=== PATIENT | female | born 1960 | race Caucasian/White ===

== ENCOUNTER → 2016-07-22 | Outpatient (REF) | payer OTHER | LOC: M LAB REF 11:22 | PROVIDERS: ATTEND Physician Assistant Medical | DX: N39.0 Urinary tract infection, site not specified (principal) ==

== ENCOUNTER → 2016-08-24 | Outpatient (CLI) | payer OTHER ==
--- NOTE | 2016-08-24 10:41 | REPMRS ---
Patient History The patient states she had a clinical breast exam in 08/2016. Patient is postmenopausal and is nulliparous. Family history of colorectal cancer in sister at age 72. Digital Woman Screen Mammo: August 24, 2016 - Exam #: [id number] Bilateral CC and MLO view(s) were taken. Technologist: Maria Teresa De Leon Technologist Prior study comparison: August 19, 2015, digital woman screen mammo performed at [facility]. July 20, 2014, digital woman screen mammo performed at [facility]. April 30, 2013, digital woman screen mammo performed at [facility]. FINDINGS: There are scattered fibroglandular densities. There has been no change in the appearance of the mammogram from the prior studies. An area of asymmetric breast parenchymal density is again seen in the right breast unchanged from multiple prior studies. There is no interval development of dominant mass, architectural distortion, or clustered microcalcification suggestive of malignancy. ASSESSMENT: BI-RADS/ACR category 2 mammogram. Benign finding(s). Recommendation Routine screening mammogram in 1 year (for women over age 40). This mammogram was interpreted with the aid of an FDA-approved computer-aided dectection system. Electronically Signed By: Jose Jaimes MD 08/24/16 1978
== END ==
LOC: M WHC 08:44
PROVIDERS: ATTEND Nurse Practitioner Women's Health
DX: Z12.31 Encounter for screening mammogram for malignant neoplasm of breast (principal)

== ENCOUNTER → 2016-08-24 | Outpatient (REF) | payer OTHER | LOC: M SFHCWAGY 09:08 | PROVIDERS: ATTEND Nurse Practitioner Women's Health | DX: Z12.4 Encounter for screening for malignant neoplasm of cervix (principal); R87.610 Atypical squamous cells of undetermined significance on cytologic smear of cervix (ASC-US); R87.810 Cervical high risk human papillomavirus (HPV) DNA test positive ==

== ENCOUNTER → 2016-09-09 | Outpatient (CLI) | payer OTHER ==
--- NOTE | 2016-09-09 12:47 | REP ---
Thoracic spine series: Three views. History: Radiculopathy. Pain for 2 weeks. No known injury. Findings: Thoracic vertebral body heights are preserved and alignment is normal. There is discogenic spurring in the mid and lower thoracic levels consistent with degenerative disc disease. Pedicles and posterior elements are intact. No paravertebral soft-tissue mass or hematoma is seen. Swimmer's lateral view shows no additional abnormality apart from some degenerative disc disease in the lower cervical spine. Impression: Degenerative disc changes. No acute bony abnormality. Signed by Garcia Jaimes MD 09/09/2016 01:14 P
== END ==
LOC: M WUC 11:38
PROVIDERS: ATTEND Physician Assistant
DX: M54.14 Radiculopathy, thoracic region (principal)

== ENCOUNTER → 2016-10-05 | Outpatient (REF) | payer OTHER | LOC: M SFHCWAGY 09:54 | PROVIDERS: ATTEND Family Medicine | DX: R87.610 Atypical squamous cells of undetermined significance on cytologic smear of cervix (ASC-US) (principal); R87.612 Low grade squamous intraepithelial lesion on cytologic smear of cervix (LGSIL); R87.810 Cervical high risk human papillomavirus (HPV) DNA test positive ==

== ENCOUNTER → 2016-10-24 | Outpatient (REF) | payer OTHER ==
[2016-10-24 10:55] LABS: MEAN CORPUSCULAR HEMOGLOBIN 29.7 pg (27.0-33.0); MEAN CORPUSCULAR HGB CONC 33.9 g/dl (32.0-36.5); MEAN CORPUSCULAR VOLUME 87.6 fl (80.0-96.0); RED CELL DISTRIBUTION WIDTH 12.2 % (11.5-14.5); WHITE BLOOD COUNT 3.4 K/mm3 (4.0-10.0)
[2016-10-24 11:22] LABS: ALBUMIN 3.4 GM/DL (3.2-5.2); ALBUMIN/GLOBULIN RATIO 1.17 (1.00-1.93); ALKALINE PHOSPHATASE 82 U/L (45-117); ALT/SGPT 27 U/L (12-78); ANION GAP 6 MEQ/L (8-16); AST/SGOT 18 U/L (15-37); BILIRUBIN,TOTAL 0.3 MG/DL (0.2-1.0); BLOOD UREA NITROGEN 23 MG/DL (7-18); CALCIUM LEVEL 8.5 MG/DL (8.5-10.1); CARBON DIOXIDE LEVEL 29 MEQ/L (21-32); CHLORIDE LEVEL 109 MEQ/L (98-107); CHOLESTEROL LEVEL 210 MG/DL (<200); CREATININE FOR GFR 0.89 MG/DL (0.55-1.02); GLOMERULAR FILTRATION RATE > 60.0 (>51); GLUCOSE, FASTING 94 MG/DL (70-105); POTASSIUM SERUM 4.5 MEQ/L (3.5-5.1); SODIUM LEVEL 144 MEQ/L (136-145); TOTAL PROTEIN 6.3 GM/DL (6.4-8.2); TRIGLYCERIDES LEVEL 63 MG/DL (<150)
== END ==
LOC: M LABDRAW1 10:32
PROVIDERS: ATTEND Nurse Practitioner Family
DX: Z00.00 Encounter for general adult medical examination without abnormal findings (principal); Z13.220 Encounter for screening for lipoid disorders; E55.9 Vitamin D deficiency, unspecified

== ENCOUNTER → 2017-06-25 | Outpatient (REF) | payer OTHER ==
[2017-06-25 11:25] LABS: APPEARANCE, URINE HAZY (CLEAR); BACTERIA, URINE AUTO 1+ (NEGATIVE); BILIRUBIN, URINE AUTO NEGATIVE (NEGATIVE); BLOOD, URINE BLOOD 3+ (NEGATIVE); COLOR, URINE STRAW (YELLOW); GLUCOSE, URINE (UA) AUTO NEGATIVE (NEGATIVE); KETONE, URINE AUTO NEGATIVE (NEGATIVE); LEUKOCYTE ESTERASE, URINE AUTO 3+ (NEGATIVE); NITRITE, URINE AUTO NEGATIVE (NEGATIVE); PROTEIN, URINE AUTO NEGATIVE (NEGATIVE); RBC, URINE AUTO 3 /HPF (0-3); SPECIFIC GRAVITY URINE AUTO 1.001 (1.002-1.035); SQUAMOUS EPITHELIAL CELL UR AU 0 /HPF (0-6); UROBILINOGEN, URINE AUTO 0.2 mg/dL (0.0-2.0); WBC, URINE AUTO 18 /HPF (0-3)
== END ==
LOC: M LAB REF 11:02
DX: R30.0 Dysuria (principal)

== ENCOUNTER → 2017-10-24 | Outpatient (REF) | payer OTHER ==
[2017-10-24 12:05] LABS: HEMATOCRIT 40.9 % (36.0-47.0); HEMOGLOBIN 13.2 g/dl (12.0-15.5); MEAN CORPUSCULAR HEMOGLOBIN 28.3 pg (27.0-33.0); MEAN CORPUSCULAR HGB CONC 32.3 g/dl (32.0-36.5); MEAN CORPUSCULAR VOLUME 87.6 fl (80.0-96.0); PLATELET COUNT, AUTOMATED 308 10^3/uL (150-450); RED BLOOD COUNT 4.67 10^6/uL (4.00-5.40); RED CELL DISTRIBUTION WIDTH 12.4 % (11.5-14.5); WHITE BLOOD COUNT 4.1 10^3/uL (4.0-10.0)
[2017-10-24 12:22] LABS: TOTAL 25(OH) VITAMIN D 60.4 NG/ML (30.0-100.0)
[2017-10-24 12:45] LABS: ANION GAP 5 MEQ/L (8-16); BLOOD UREA NITROGEN 11 MG/DL (7-18); CALCIUM LEVEL 8.9 MG/DL (8.5-10.1); CARBON DIOXIDE LEVEL 29 MEQ/L (21-32); CHLORIDE LEVEL 108 MEQ/L (98-107); CREATININE FOR GFR 0.87 MG/DL (0.55-1.30); GLOMERULAR FILTRATION RATE > 60.0 (>51); GLUCOSE, FASTING 92 MG/DL (70-100); POTASSIUM SERUM 4.4 MEQ/L (3.5-5.1); SODIUM LEVEL 142 MEQ/L (136-145)
[2017-10-25 10:37] LABS: HEPATITIS C VIRUS ABY INDEX < 0.0 INDEX (<0.8)
== END ==
LOC: M SFHCPLAZ 09:02
DX: J30.9 Allergic rhinitis, unspecified (principal); Z11.59 Encounter for screening for other viral diseases; Z83.3 Family history of diabetes mellitus; E55.9 Vitamin D deficiency, unspecified

== ENCOUNTER → 2017-11-02 | Outpatient (CLI) | payer OTHER ==
[2017-11-02 13:33] LABS: ALBUMIN 3.8 GM/DL (3.2-5.2); ALBUMIN/GLOBULIN RATIO 1.15 (1.00-1.93); ALKALINE PHOSPHATASE 113 U/L (45-117); ALT/SGPT 38 U/L (12-78); ANION GAP 6 MEQ/L (8-16); AST/SGOT 26 U/L (7-37); BILIRUBIN,TOTAL 0.6 MG/DL (0.2-1.0); BLOOD UREA NITROGEN 12 MG/DL (7-18); CALCIUM LEVEL 8.8 MG/DL (8.5-10.1); CARBON DIOXIDE LEVEL 29 MEQ/L (21-32); CHLORIDE LEVEL 109 MEQ/L (98-107); CHOLESTEROL LEVEL 249 MG/DL (<200); FREE T4 0.81 NG/DL (0.76-1.46); GLOMERULAR FILTRATION RATE > 60.0 (>51); GLUCOSE, FASTING 96 MG/DL (70-100); HDL CHOLESTEROL 83 MG/DL (>40); LDL CHOLESTEROL 144.2 MG/DL (<100); NON-HDL-C 166 MG/DL; POTASSIUM SERUM 4.6 MEQ/L (3.5-5.1); SODIUM LEVEL 144 MEQ/L (136-145); TOTAL PROTEIN 7.1 GM/DL (6.4-8.2); TRIGLYCERIDES LEVEL 109 MG/DL (<150)
[2017-11-02 13:41] LABS: ESTIMATED AVERAGE GLUCOSE 114 MG/DL (60-110); HEMOGLOBIN A1c 5.6 %
== END ==
LOC: M WUC 09:11
DX: R03.0 Elevated blood-pressure reading, without diagnosis of hypertension (principal); R00.2 Palpitations; Z83.3 Family history of diabetes mellitus
CPT/HCPCS: 84443

== ENCOUNTER → 2017-11-22 | Outpatient (REF) | payer OTHER ==
[2017-11-23 14:10] LABS: HPV HYBRID CAPTURE II Negative (Negative)
== END ==
LOC: M SFHCWAGY 09:28
DX: Z01.419 Encounter for gynecological examination (general) (routine) without abnormal findings (principal); Z11.51 Encounter for screening for human papillomavirus (HPV)

== ENCOUNTER → 2017-11-22 | Outpatient (CLI) | payer OTHER | LOC: M WHC 09:22 | DX: Z12.31 Encounter for screening mammogram for malignant neoplasm of breast (principal) ==

== ENCOUNTER → 2018-03-06 | Outpatient (CLI) | payer OTHER ==
[2018-03-06 11:14] LABS: ANION GAP 7 MEQ/L (8-16); BLOOD UREA NITROGEN 13 MG/DL (7-18); CALCIUM LEVEL 8.9 MG/DL (8.5-10.1); CARBON DIOXIDE LEVEL 27 MEQ/L (21-32); CHLORIDE LEVEL 106 MEQ/L (98-107); CREATININE FOR GFR 0.76 MG/DL (0.55-1.30); GLOMERULAR FILTRATION RATE > 60.0 (>51); GLUCOSE, FASTING 86 MG/DL (70-100); POTASSIUM SERUM 4.7 MEQ/L (3.5-5.1); SODIUM LEVEL 140 MEQ/L (136-145)
== END ==
LOC: M WUC 08:35
DX: I10 Essential (primary) hypertension (principal)
CPT/HCPCS: 80048

== ENCOUNTER → 2018-08-28 | Outpatient (CLI) | payer OTHER ==
[2018-08-28 13:50] LABS: ALBUMIN 3.9 GM/DL (3.2-5.2); ALT/SGPT 30 U/L (12-78); BILIRUBIN,TOTAL 0.5 MG/DL (0.2-1.0); BLOOD UREA NITROGEN 11 MG/DL (7-18); CARBON DIOXIDE LEVEL 27 MEQ/L (21-32); CHLORIDE LEVEL 105 MEQ/L (98-107); CHOLESTEROL LEVEL 205 MG/DL (<200); CHOLESTEROL RISK RATIO 2.733 (<5); GLOMERULAR FILTRATION RATE > 60.0 (>51); GLUCOSE, FASTING 91 MG/DL (70-100); HDL CHOLESTEROL 75 MG/DL (>40); LDL CHOLESTEROL 112 MG/DL (<100); NON-HDL-C 130 MG/DL; SODIUM LEVEL 139 MEQ/L (136-145); TOTAL PROTEIN 6.8 GM/DL (6.4-8.2); TRIGLYCERIDES LEVEL 89 MG/DL (<150)
[2018-08-28 13:56] LABS: TOTAL 25(OH) VITAMIN D 50.5 NG/ML (30.0-100.0)
== END ==
LOC: M WUC 08:50
PROVIDERS: ATTEND Nurse Practitioner Family
DX: I10 Essential (primary) hypertension (principal); E78.2 Mixed hyperlipidemia; E55.9 Vitamin D deficiency, unspecified

== ENCOUNTER → 2018-09-15 | Outpatient (REF) | payer OTHER ==
[~2018-09-15] MED LIST: CIPR-249 PO; LOSA25TA14 PO; PYRI1TAB5 PO
[2018-09-15 17:16] LABS: INFLUENZA A AMPLIFICATION NEGATIVE (NEGATIVE); INFLUENZA B AMPLIFICATION NEGATIVE (NEGATIVE)
== END ==
LOC: M LAB REF 16:27
PROVIDERS: ATTEND Physician Assistant Medical
DX: J11.1 Influenza due to unidentified influenza virus with other respiratory manifestations (principal)

== ENCOUNTER 2018-09-17 03:47 | Emergency (ER) | payer OTHER ==
[~2018-09-17] VITALS: Ht 162.6 cm; Wt 72.7 kg
[2018-09-17] MEDS ORDERED: LOSA25TA14 PO (03:53)
[2018-09-17 04:17] LABS: APPEARANCE, URINE CLOUDY (CLEAR); BACTERIA, URINE AUTO 1+ (NEGATIVE); BILIRUBIN, URINE AUTO NEGATIVE (NEGATIVE); BLOOD, URINE BLOOD 3+ (NEGATIVE); COLOR, URINE AMBER (YELLOW); GLUCOSE, URINE (UA) AUTO NEGATIVE (NEGATIVE); KETONE, URINE AUTO TRACE mg/dL (NEGATIVE); LEUKOCYTE ESTERASE, URINE AUTO 3+ (NEGATIVE); MUCUS, URINE SMALL (NEGATIVE); NITRITE, URINE AUTO NEGATIVE (NEGATIVE); PROTEIN, URINE AUTO 2+ mg/dL (NEGATIVE); RBC, URINE AUTO 40 /HPF (0-3); SPECIFIC GRAVITY URINE AUTO 1.019 (1.002-1.035); SQUAMOUS EPITHELIAL CELL UR AU 16 /HPF (0-6); UROBILINOGEN, URINE AUTO 0.2 mg/dL (0.0-2.0); WBC, URINE AUTO TNTC /HPF (0-3)
[2018-09-17] MEDS ORDERED: CIPROFLOXACIN 500 MG TAB PO ONE (06:00)
[2018-09-17] MEDS ORDERED: PHENAZOPYRIDINE 100 MG TAB PO ONE (06:00)
[2018-09-17] MEDS ORDERED: PYRI1TAB5 PO (06:03)
[2018-09-17] MEDS ORDERED: CIPR-249 PO (06:03)
[2018-09-17 06:10] VITALS: BP 139/69
== END 2018-09-17 06:31 | disposition home or self-care (01) ==
LOC: M ED 03:47
DX: N30.00 Acute cystitis without hematuria (principal)

== ENCOUNTER → 2018-09-25 | Outpatient (REF) | payer OTHER | LOC: M SFHCPLAZ 11:59 | PROVIDERS: ATTEND Nurse Practitioner Family | DX: R30.0 Dysuria (principal) ==

== ENCOUNTER → 2018-09-25 | Outpatient (REF) | payer OTHER | LOC: M SFHCPLAZ 15:55 | PROVIDERS: ATTEND Nurse Practitioner Family | DX: R30.0 Dysuria (principal) ==

== ENCOUNTER → 2018-09-25 | Outpatient (CLI) | payer OTHER ==
[2018-09-25 17:17] LABS: BASO # 0.1 10^3/uL (0.0-0.2); BASO % 0.7 % (0.0-1.0); BLOOD UREA NITROGEN 7 MG/DL (7-18); CALCIUM LEVEL 8.9 MG/DL (8.5-10.1); CARBON DIOXIDE LEVEL 30 MEQ/L (21-32); CHLORIDE LEVEL 105 MEQ/L (98-107); EOS # 0.2 10^3/uL (0.0-0.50); EOS % 2.9 % (0.0-3.0); GLOMERULAR FILTRATION RATE > 60.0 (>51); GLUCOSE, FASTING 85 MG/DL (70-100); HEMATOCRIT 38.9 % (36.0-47.0); HEMOGLOBIN 12.4 g/dl (12.0-15.5); LYMPH # 1.7 10^3/uL (1.5-4.5); MEAN CORPUSCULAR HEMOGLOBIN 28.7 pg (27.0-33.0); MEAN CORPUSCULAR HGB CONC 31.9 g/dl (32.0-36.5); MONO # 0.8 10^3/uL (0.0-0.8); MONO % 10.9 % (0.0-5.0); NEUTROPHILS # 4.5 10^3/uL (1.8-7.7); NEUTROPHILS % 61.7 % (36.0-66.0); PLATELET COUNT, AUTOMATED 436 10^3/uL (150-450); RED BLOOD COUNT 4.32 10^6/uL (4.00-5.40); SODIUM LEVEL 139 MEQ/L (136-145); WHITE BLOOD COUNT 7.4 10^3/uL (4.0-10.0)
== END ==
LOC: M WUC 12:26
PROVIDERS: ATTEND Nurse Practitioner Family
DX: R30.0 Dysuria (principal)

== ENCOUNTER → 2018-11-28 | Outpatient (CLI) | payer OTHER ==
--- NOTE | 2018-11-28 12:00 | REPMRS ---
Patient History The patient states she had a clinical breast exam in 11/2018. Patient is postmenopausal and is nulliparous. Family history of pancreatic cancer at age 72 in sister. No Hormone Replacement Therapy 3D TOMOSYNTHESIS WAS PERFORMED. Digital Woman Screen Mammo: November 28, 2018 - Exam #: [id number] Bilateral CC and MLO view(s) were taken. Technologist: Marcia Mackay, Technologist Prior study comparison: November 22, 2017, digital woman screen mammo performed at [facility]. August 24, 2016, digital woman screen mammo performed at [facility]. FINDINGS: There are scattered fibroglandular densities. There has been no change in the appearance of the mammogram from the prior studies. There is a mild amount of residual fibroglandular tissue which is fairly symmetric. There is no interval development of dominant mass, architectural distortion, or clustered microcalcification suggestive of malignancy. Assessment: BI-RADS/ACR category 1 mammogram. Negative Mammogram. Recommendation Routine screening mammogram in 1 year (for women over age 40). This mammogram was interpreted with the aid of an FDA-approved computer-aided dectection system. Electronically Signed By: Brain Reilly MD 11/28/18 1200
== END ==
LOC: M WHC 09:29
PROVIDERS: ATTEND Nurse Practitioner Women's Health
DX: Z12.31 Encounter for screening mammogram for malignant neoplasm of breast (principal); Z78.0 Asymptomatic menopausal state; Z80.0 Family history of malignant neoplasm of digestive organs

== ENCOUNTER → 2019-01-27 | Outpatient (REF) | payer OTHER ==
[2019-01-27 14:45] LABS: APPEARANCE, URINE CLEAR (CLEAR); BACTERIA, URINE AUTO NEGATIVE (NEGATIVE); BILIRUBIN, URINE AUTO NEGATIVE (NEGATIVE); BLOOD, URINE BLOOD 2+ (NEGATIVE); COLOR, URINE YELLOW (YELLOW); GLUCOSE, URINE (UA) AUTO NEGATIVE (NEGATIVE); KETONE, URINE AUTO NEGATIVE (NEGATIVE); LEUKOCYTE ESTERASE, URINE AUTO NEGATIVE (NEGATIVE); MUCUS, URINE SMALL (NEGATIVE); NITRITE, URINE AUTO NEGATIVE (NEGATIVE); PROTEIN, URINE AUTO NEGATIVE (NEGATIVE); RBC, URINE AUTO 9 /HPF (0-3); SPECIFIC GRAVITY URINE AUTO 1.012 (1.002-1.035); SQUAMOUS EPITHELIAL CELL UR AU 0 /HPF (0-6); UROBILINOGEN, URINE AUTO 0.2 mg/dL (0.0-2.0); WBC, URINE AUTO 0 /HPF (0-3)
== END ==
LOC: M LAB REF 12:36
PROVIDERS: ATTEND Physician Assistant Medical
DX: N39.0 Urinary tract infection, site not specified (principal)

== ENCOUNTER → 2019-08-26 | Outpatient (CLI) | payer OTHER ==
[2019-08-26 11:32] LABS: ALT/SGPT 25 U/L (12-78); BILIRUBIN,TOTAL 0.7 MG/DL (0.2-1.0); BLOOD UREA NITROGEN 14 MG/DL (7-18); CALCIUM LEVEL 8.6 MG/DL (8.8-10.2); CARBON DIOXIDE LEVEL 30 MEQ/L (21-32); CHLORIDE LEVEL 105 MEQ/L (98-107); CHOLESTEROL LEVEL 237 MG/DL (<200); CHOLESTEROL RISK RATIO 3.385 (<5); CREATININE FOR GFR 0.74 MG/DL (0.55-1.30); GLOMERULAR FILTRATION RATE > 60.0 (>45); GLUCOSE, FASTING 87 MG/DL (70-100); HDL CHOLESTEROL 70 MG/DL (>40); LDL CHOLESTEROL 143 MG/DL (<100); NON-HDL-C 167 MG/DL; POTASSIUM SERUM 4.7 MEQ/L (3.5-5.1); SODIUM LEVEL 140 MEQ/L (136-145); TOTAL PROTEIN 6.8 GM/DL (6.4-8.2); TRIGLYCERIDES LEVEL 121 MG/DL (<150)
[2019-08-26 11:37] LABS: TOTAL 25(OH) VITAMIN D 60.1 NG/ML (30.0-100.0)
[2019-08-26 11:41] LABS: CREATININE, URINE 56.9 MG/DL; MALB URINE SIEMENS < 5.0 MG/L; MAU/CREAT RATIO 8.7 MCG/MG (0.0-30.0)
== END ==
LOC: M WUC 08:14
PROVIDERS: ATTEND Nurse Practitioner Family
DX: I10 Essential (primary) hypertension (principal); E78.2 Mixed hyperlipidemia; E55.9 Vitamin D deficiency, unspecified

== ENCOUNTER → 2019-12-29 | Outpatient (CLI) | payer OTHER ==
--- NOTE | 2019-12-29 11:41 | REPMRS ---
Patient History The patient states she had a clinical breast exam in December 2019.Family history of pancreatic cancer at age 72 in sister. No Hormone Replacement Therapy 3D TOMOSYNTHESIS WAS PERFORMED. [facility]%. VOLPARA DENSITY B. Digital Woman Screen Mammo: December 29, 2019 - Exam #: [id number] Bilateral CC and MLO view(s) were taken. Technologist: Taina Contreras, Technologist Prior study comparison: November 28, 2018, bilateral digital woman screen mammo performed at [facility]. November 22, 2017, digital woman screen mammo performed at [facility]. FINDINGS: There are scattered fibroglandular densities. There has been no change in the appearance of the mammogram from the prior studies. There is a mild amount of residual fibroglandular tissue which is fairly symmetric. There is no interval development of dominant mass, architectural distortion, or clustered microcalcification suggestive of malignancy. Assessment: BI-RADS/ACR category 1 mammogram. Negative Mammogram. Recommendation Routine screening mammogram in 1 year (for women over age 40). This mammogram was interpreted with the aid of an FDA-approved computer-aided dectection system. Electronically Signed By: Brain Reilly MD 12/29/19 2037
== END ==
LOC: M WHC 08:54
PROVIDERS: ATTEND Nurse Practitioner Women's Health
DX: Z12.31 Encounter for screening mammogram for malignant neoplasm of breast (principal)

== ENCOUNTER → 2019-12-29 | Outpatient (REF) | payer OTHER | LOC: M SFHCWAGY 15:07 | PROVIDERS: ATTEND Nurse Practitioner Women's Health | DX: Z12.4 Encounter for screening for malignant neoplasm of cervix (principal) ==

== ENCOUNTER → 2020-04-28 | Outpatient (REF) | payer OTHER ==
[2020-04-28 14:30] LABS: BLOOD UREA NITROGEN 14 MG/DL (7-18); CARBON DIOXIDE LEVEL 30 MEQ/L (21-32); CHLORIDE LEVEL 106 MEQ/L (98-107); CREATININE FOR GFR 0.79 MG/DL (0.55-1.30); GLOMERULAR FILTRATION RATE > 60.0 (>45); GLUCOSE, FASTING 95 MG/DL (70-100); POTASSIUM SERUM 5.2 MEQ/L (3.5-5.1); SODIUM LEVEL 140 MEQ/L (136-145)
== END ==
LOC: M SFHCPLAZ 10:39
PROVIDERS: ATTEND Nurse Practitioner Family
DX: I10 Essential (primary) hypertension (principal); R19.7 Diarrhea, unspecified

== ENCOUNTER → 2020-05-31 | Outpatient (CLI) | payer SELFPAY | LOC: M LABSMTC 09:24 | PROVIDERS: ATTEND Pediatrics | DX: Z11.59 Encounter for screening for other viral diseases (principal) ==

== ENCOUNTER → 2020-06-03 | Outpatient (REF) | payer SELFPAY | LOC: M SFHCPLAZ 12:39 | PROVIDERS: ATTEND Nurse Practitioner Family | DX: R19.7 Diarrhea, unspecified (principal) ==

== ENCOUNTER → 2020-08-24 | Outpatient (REF) | payer OTHER ==
[2020-08-24 11:13] LABS: ALBUMIN 3.8 GM/DL (3.2-5.2); ALT/SGPT 97 U/L (12-78); BILIRUBIN,TOTAL 0.4 MG/DL (0.2-1.0); BLOOD UREA NITROGEN 12 MG/DL (7-18); CALCIUM LEVEL 8.9 MG/DL (8.8-10.2); CARBON DIOXIDE LEVEL 30 MEQ/L (21-32); CHLORIDE LEVEL 105 MEQ/L (98-107); CHOLESTEROL LEVEL 253 MG/DL (<200); CHOLESTEROL RISK RATIO 3.513 (<5); CREATININE FOR GFR 0.84 MG/DL (0.55-1.30); GLOMERULAR FILTRATION RATE > 60.0 (>45); GLUCOSE, FASTING 95 MG/DL (70-100); HDL CHOLESTEROL 72 MG/DL (>40); LDL CHOLESTEROL 159 MG/DL (<100); NON-HDL-C 181 MG/DL; POTASSIUM SERUM 4.9 MEQ/L (3.5-5.1); SODIUM LEVEL 138 MEQ/L (136-145); TOTAL 25(OH) VITAMIN D 55.2 NG/ML (30.0-100.0); TOTAL PROTEIN 6.8 GM/DL (6.4-8.2); TRIGLYCERIDES LEVEL 112 MG/DL (<150)
[2020-08-24 11:15] LABS: CREATININE, URINE 40.1 MG/DL; MALB URINE SIEMENS 5.8 MG/L; MAU/CREAT RATIO 14.4 MCG/MG (0.0-30.0)
== END ==
LOC: M PLALAB 08:24
PROVIDERS: ATTEND Nurse Practitioner Family
DX: E78.2 Mixed hyperlipidemia (principal); I10 Essential (primary) hypertension; E55.9 Vitamin D deficiency, unspecified

== ENCOUNTER → 2020-10-07 | Outpatient (REF) | payer OTHER ==
[2020-10-07 12:41] LABS: ALBUMIN 3.7 GM/DL (3.2-5.2); BILIRUBIN,DIRECT 0.2 MG/DL (0.0-0.2); BILIRUBIN,TOTAL 0.5 MG/DL (0.2-1.0); TOTAL PROTEIN 6.6 GM/DL (6.4-8.2)
== END ==
LOC: M PLALAB 09:39
PROVIDERS: ATTEND Nurse Practitioner Family
DX: R79.89 Other specified abnormal findings of blood chemistry (principal)

== ENCOUNTER → 2020-11-02 | Outpatient (REF) | payer OTHER ==
[2020-11-02 10:49] LABS: ALBUMIN 3.9 GM/DL (3.2-5.2); ALT/SGPT 64 U/L (12-78); BILIRUBIN,DIRECT 0.1 MG/DL (0.0-0.2); BILIRUBIN,TOTAL 0.6 MG/DL (0.2-1.0); TOTAL PROTEIN 6.9 GM/DL (6.4-8.2)
[2020-11-02 13:27] LABS: HEPATITIS B SURFACE ANTIGEN NEGATIVE (NEGATIVE)
[2020-11-02 13:55] LABS: HEPATITIS B CORE ANTIBODY IGM NEGATIVE (NEGATIVE); HEPATITIS C VIRUS ABY INDEX < 0.0 INDEX (<0.8)
[2020-11-02 13:57] LABS: HEPATITIS A ANTIBODY IGM NEGATIVE (NEGATIVE)
== END ==
LOC: M PLALAB 08:08
PROVIDERS: ATTEND Nurse Practitioner Family
DX: R79.89 Other specified abnormal findings of blood chemistry (principal)

== ENCOUNTER → 2020-11-02 | Outpatient (CLI) | payer OTHER ==
--- NOTE | 2020-11-02 10:15 | REP ---
INDICATION: R79.89 LFT ELEVATED COMPARISON: None. TECHNIQUE: Real time tse scale ultrasound examination using curved array transducer. FINDINGS: Liver is hyperechoic and consistent with fatty infiltration. No focal hepatic lesion identified. Pancreas is incompletely evaluated due to interposed bowel gas, but visualized portions appear normal.. The gallbladder demonstrates small amount of sludge without gallstones, wall thickening, or pericholecystic fluid. No biliary ductal dilatation is appreciated and the common bile duct measures 2.4 mm diameter. Right kidney is normal in reniform shape without hydronephrosis and measures 10.6 x 4.4 x 4.6 cm. No ascites in the visualized right upper quadrant. Visualized abdominal aorta appears normal and measures 1.6 cm maximal diameter. IMPRESSION: Hepatosteatosis. Small amount of gallbladder sludge without obvious gallstones. <Electronically signed by Kalia Guallpa > 11/02/20 101
== END ==
LOC: M WHC 08:24
PROVIDERS: ATTEND Nurse Practitioner Family
DX: K76.0 Fatty (change of) liver, not elsewhere classified (principal); K82.4 Cholesterolosis of gallbladder; R79.89 Other specified abnormal findings of blood chemistry

== ENCOUNTER → 2021-02-16 | Outpatient (CLI) | payer OTHER ==
--- NOTE | 2021-02-16 09:59 | REPMRS ---
Patient History The patient states she had a clinical breast exam in February 16, 2021. Family history of pancreatic cancer at age 72 in sister. No Hormone Replacement Therapy 10 lb unintentional weight gain. Moderna vaccine 08/22/20 left arm. 09/22/20 left arm. Patient states no breast complaints today. Patient has signed MRS History Sheet. Digital Woman Screen Mammo: February 16, 2021 - Exam #: [id number] Bilateral CC and MLO view(s) were taken. Technologist: RT Myke Prior study comparison: December 29, 2019, bilateral digital woman screen mammo performed at [facility]. November 28, 2018, bilateral digital woman screen mammo performed at [facility]. November 22, 2017, digital woman screen mammo performed at [facility]. FINDINGS: There are scattered fibroglandular densities. The Volpara volumetric breast density category is:B. There has been no change in the appearance of the mammogram from the prior studies. There is a mild amount of scattered fibroglandular density which is fairly symmetric. There is no interval development of dominant mass, architectural distortion, or grouped microcalcification suggestive of malignancy. 3-D tomosynthesis shows no additional findings. Assessment: BI-RADS/ACR category 1 mammogram. Negative Mammogram. Recommendation Routine screening mammogram of both breasts in 1 year (for women over age 40). This patient's [facility] Lifetime Breast Cancer Risk is estimated at 11.1 %. This mammogram was interpreted with the aid of an FDA-approved computer-aided dectection system. Electronically Signed By: Jose Jaimes MD 02/16/21 0958
== END ==
LOC: M WHC 08:43
PROVIDERS: ATTEND Nurse Practitioner Women's Health
DX: Z12.31 Encounter for screening mammogram for malignant neoplasm of breast (principal); Z80.0 Family history of malignant neoplasm of digestive organs

== ENCOUNTER → 2021-02-16 | Outpatient (REF) | payer OTHER | LOC: M SFHCWAGY 12:17 | PROVIDERS: ATTEND Nurse Practitioner Women's Health | DX: Z12.4 Encounter for screening for malignant neoplasm of cervix (principal) ==

== ENCOUNTER → 2021-05-08 | Outpatient (CLI) | payer OTHER ==
[~2021-05-08] MED LIST changes: +ALEV220T22 PO; +AZEL1SPR3 NARES; +D31000TA2 PO; +VITA-243 PO; +VITMTA PO
== END ==
LOC: M LABSMTC 09:36
PROVIDERS: ATTEND Anesthesiology
DX: Z01.812 Encounter for preprocedural laboratory examination (principal); Z20.822 Contact with and (suspected) exposure to COVID-19

== ENCOUNTER 2021-05-12 09:42 | Day surgery (SDC) | payer OTHER ==
[~2021-05-12] VITALS: Ht 162.6 cm; Wt 86.2 kg
[~2021-05-12 09:42] MED LIST changes: +BSS IRR 500ML/OMIDRIA 4ML IRR BAG (OR ONLY) As Ordered ONE; +CEFUROXIME 1MG/0.1ML INTRACAMERAL INJ As Ordered ONE; +DUOVISC (0.50ML VISCOAT/0.85ML PROVISC) OPHTH KIT As Ordered ONE; +OFLOXACIN 0.3 % (OCUFLOX) OPTH SOL 5ML OD SCH; +PHENYLEPHRINE 1.5%/LIDOCAINE 1% INTRAOCULAR 0.8ML SYRINGE As Ordered ONE; +PHENYLEPHRINE 2.5% OPHTH SOL 2ML OD SCH; +PROPARACAINE 0.5% OPHTH SOL 15ML OD ONE; +TROPICAMIDE 1% OPHTH SOLN 2ML OD SCH
--- OUTSIDE RECORDS SUMMARY | 2021-05-12 09:47 | CCD ---
Author Author [facility] Organization [facility] Address Unknown Phone Unavailable Care Team Providers Care Herb Digger Name Role Phone Shireen James Unavailable PROBLEMS Type Condition ICD9-CM Code [id number] Code Onset Dates Condition S tatus W/U Status Risk SNOMED Code Notes Problem Vitamin D deficiency E55.9 Active confirmed 82241403 Problem Allergic rhinitis, cause unspecified J30.9 Act nisreen confirmed 38041447 Problem Family history of heart disease Z82.49 Active confi rmed 019426670 Problem Mild dysplasia of cervix (CHELY I) N87.0 Active conf irmed 294149137 Problem Heart murmur R01.1 Active confirmed 7680581 6 Problem Mixed hyperlipidemia E78.2 Active confirmed 416582336 Problem Essential hypertension I10 Active confirmed 14720995 Problem Fatty liver K76.0 Active confirmed 21085158 7 Problem Intermittent palpitations R00.2 Active confirmed 893728750 Problem Acute right-sided low back pain with right-sided sciatica M54.41 Active confirmed 204830401 Resolved with ph ysical therapy, may return to work with no restrictions, return here as needed Problem Family history of diabetes mellitus (DM) Z83.3 Active confirmed 201056909 Problem Herpes simplex B00.9 Active confirmed 70665 005 Problem Obesity (BMI 30.0-34.9) E66.9 Active confirmed 687010626458920 Problem BMI 32.0-32.9,adult Z68.32 Active confirmed 767402642 Problem LFT elevation R79.89 Active confirmed 301773 05 ALLERGIES No Known Allergies ENCOUNTERS from 1960 to 2021-03-08 Encounter Location Date Provider Diagnosis [address] [phone] [place] [address] Jan, Shireen Jacob IMMUNIZATIONS Vaccine Route Administration Date Status COVID-19 dose #2 given elsewhere Unspecified Unknown Apr il 2020 Administered COVID-19 dose #1 given elsewhere Unspecified Unknown Mar ch 2020 Administered Influenza 6mo & up Fluzone IM Intramuscular Apr 29, 2015 Admi nistered Influenza 6mo & up Fluzone Unknown Mar 31, 2014 Admin istered Influenza 6mo & up Fluzone IM Intramuscular Mar 14, 2011 Admi nistered SOCIAL HISTORY Tobacco Use: Social History Observation Description Date Details (start date - stop date) Former Smoker Sex Assigned At : Social History Observation Description Sex Assigned At Female Education: Question Answer Notes Level of Education: Finished 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 Yes LMP: post menopause Have you ever had an STD? Yes Prevention Strategies discussed: Condoms with Men only Use protection? No Other? Yes Herpes? No Syphilis? No GC? No Chlamydia? No Drug and Alcohol Question Answer Notes Total Score: 0 Interpretation: No problems reported Alcohol Screening: Question Answer Notes Did you have a drink containing alcohol in the past year? Ye s Points 2 Interpretation Negative How often did you have six or more drinks on one occas ion in the past year? Never (0 points) How many drinks did you have on a typica l day when you were drinking in the past year? 1 or 2 (0 points) How often did you have a drink containing alcohol in t he past year? Two to four times a month (2 points) BMI Care Goal Follow-Up Question Answer Notes Above Normal BMI Follow-Up Weight monitoring Tobacco Use: Question Answer Notes Are you a: former smoker How long has it been since you last smoked? > 10 years REASON FOR REFERRAL No Information VITAL SIGNS No information MEDICATIONS Medication SIG (Take, Route, Frequency, Duration) Notes Start Da te End Date Status Calcium 600 + D 600-400 MG-UNIT 1 tablet Orally Daily Active Losartan Potassium 25 MG 1 tablet Orally Once a day Active Vitamin D3 1000 UNIT 2 capsules Orally Daily with meal Active Aleve 220 MG 1 tablet as needed Orally every 12 hrs Not-Taking Physical Therapy evaluate and treat mechanical eval & tx M54.41, LBP with right sciatica 3 x/wk x for 30 Days Dec, No t-Taking Acyclovir 5 % 1 application to affected ar ea on buttocks at symptom onset Externally Six times a day for 7 day(s) Jan, Active Azelastine HCl 0.1 % 1 puff in each nostril Nasally Twice a day for 9 0 Active Naproxen 500 MG 1 tablet with food or milk a s needed Orally every 12 hrs as needed for 30 Days Dec, Not-Taking PROCEDURES No Information RESULTS No Results REASON FOR VISIT last office note and release to work MEDICAL (GENERAL) HISTORY Type Description Date Medical History Essential hypertension Medical History heart murmur Medical History Vitamin D deficiency Medical History Mild dysplasia of cervix (CHELY I) Medical History recurrent HSV Medical History Environmental and seasonal allergies Medical History COVID vaccine - Moderna, , Surgical History LEEP Surgical History tubal ligation Surgical History colonoscopy (repeat 5-10yrs [facility]) Surgical History colposcopy - negKenia 05/02 Surgical History colposcopy - LSILKarla 07/05, 05/05 Surgical History colposcopy with DR Lackey 10/05/16 Hospitalization History No Hospitalization history informati on Goals Section No Information Health Concerns No Information MEDICAL EQUIPMENT No Information MENTAL STATUS No Information FUNCTIONAL STATUS No Information ASSESSMENTS No Information PLAN OF TREATMENT Next Appt Details Provider Name:Odalis Olvera, 2021-03-21 09:30:00 AM, [address] [place] [address] , [place], [address], Provider Name:Alba Rivera, 2021-05-02 09:1 5:00 AM, [address] [place] [address] , [place], [address], Provider Name:Shireen James, 2 10:00:00 AM, [address] [place] [address] , [place], [address], Insurance Providers Payer Name Payer Address Payer Phone Insured Name Patient Relati onship to Insured Coverage Start Date Coverage End Date [id number] [facility] [id number] [address] [address] 2020
--- OUTSIDE RECORDS SUMMARY | 2021-05-12 09:47 | CCD ---
Author Author [facility] Organization [facility] Address Unknown Phone Unavailable Care Team Providers Care Mutual Fund Manager Name Role Phone Shireen James Unavailable PROBLEMS Type Condition ICD9-CM Code [id number] Code Onset Dates Condition S tatus W/U Status Risk SNOMED Code Notes Problem Vitamin D deficiency E55.9 Active confirmed 84362209 Problem Allergic rhinitis, cause unspecified J30.9 Act nisreen confirmed 43717547 Problem Family history of heart disease Z82.49 Active confi rmed 166431641 Problem Mild dysplasia of cervix (CHELY I) N87.0 Active conf irmed 437292148 Problem Heart murmur R01.1 Active confirmed 0499248 6 Problem Mixed hyperlipidemia E78.2 Active confirmed 671657796 Problem Essential hypertension I10 Active confirmed 07763587 Problem Fatty liver K76.0 Active confirmed 75967290 7 Problem Intermittent palpitations R00.2 Active confirmed 027418750 Problem Acute right-sided low back pain with right-sided sciatica M54.41 Active confirmed 636811493 Resolved with ph ysical therapy, may return to work with no restrictions, return here as needed Problem Family history of diabetes mellitus (DM) Z83.3 Active confirmed 475616412 Problem Herpes simplex B00.9 Active confirmed 69595 005 Problem Obesity (BMI 30.0-34.9) E66.9 Active confirmed 315738412869734 Problem BMI 32.0-32.9,adult Z68.32 Active confirmed 656611301 Problem LFT elevation R79.89 Active confirmed 125714 05 ALLERGIES No Known Allergies ENCOUNTERS from 1960 to 2021-02-21 Encounter Location Date Provider Diagnosis [address] [phone] [place] [address] Jan, Shireen James Acute right-sided low back p ain with right-sided sciatica M54.41 IMMUNIZATIONS Vaccine Route Administration Date Status COVID-19 dose #2 given elsewhere Unspecified Unknown Sep Administered COVID-19 dose #1 given elsewhere Unspecified [...] Education Language: Question Answer Notes Languages spoken: Polish Latter-Day: Question Answer Notes L[employer] 08 [employer] Sexual Hx: Question Answer Notes Had sex [...] REASON FOR REFERRAL No Information VITAL SIGNS Weight 189 lbs Jan, Height 63.5 in Jan, BMI 32.95 kg/m2 Jan, Heart Rate 80 /min Jan, Respiratory Rate 16 /min Jan, Temperature 97.6 degrees Fahrenheit Jan, Oximetry 98% Jan, Blood pressure systolic 132 mm Hg Jan, Blood pressure diastolic 74 mm Hg Jan, MEDICATIONS Medication SIG (Take, Route, Frequency, Duration) [...] Information RESULTS No Results REASON FOR VISIT 02/17/21, 60 minutes (Reason: w/c - LBP) MEDICAL (GENERAL) HISTORY Type Description Date Medical History Essential hypertension Medical History heart murmur Medical History Vitamin D deficiency Medical History Mild dysplasia of cervix (CHELY I) Medical History recurrent HSV Medical History Environmental and seasonal allergies Medical History COVID vaccine - Moderna, , 20 21 Surgical History LEEP Surgical History tubal ligation Surgical History colonoscopy (repeat 5-10yrs [facility]) Surgical History colposcopy - negKenia 05/02 Surgical History colposcopy - LSILKarla 07/05, 05/05 Surgical History colposcopy with DR Lackey 10/05/16 Hospitalization History No Hospitalization history informati on Goals Section No Information Health Concerns No Information MEDICAL EQUIPMENT No Information MENTAL STATUS No Information FUNCTIONAL STATUS No Information ASSESSMENTS Encounter Date Diagnosis Assessment Notes Treatment Notes Treatm ent Clinical Notes Jan, Acute right-sided low back p ain with right-sided sciatica (ICD-10 - M54.41) Resolved with physical therapy, may retu rn to work with no restrictions, return here as needed PLAN OF TREATMENT Next Appt Details prn Reason:w/c - LBP Provider Name:Alba Miguel, 2021-05-02 09:1 5:00 AM, [address] [place] [address], , [place], [address], Provider Name:Shireen Jacob, 2 10:00:00 AM, [address] [place] [address], , [place], [address], Follow Up:prnw/c - LBP Insurance Providers Payer Name Payer Address Payer Phone Insured Name Patient Relati onship to Insured Coverage Start Date Coverage End Date [employer],[id number] [facility] [id number] [address] 2020
--- OUTSIDE RECORDS SUMMARY | 2021-05-12 09:47 | CCD ---
Author Author [facility] Organization [facility] Address Unknown Phone Unavailable Care Team Providers Care Outreach Manager Name Role Phone Taina Mckeon Unavailable PROBLEMS Type Condition ICD9-CM Code [id number] Code Onset Dates Condition S tatus W/U Status Risk SNOMED Code Notes Problem Vitamin D deficiency E55.9 Active confirmed 00012429 Problem Allergic rhinitis, cause unspecified J30.9 Act nisreen confirmed 22243532 Problem Family history of heart disease Z82.49 Active confi rmed [id number] Problem Mild dysplasia of cervix (CHELY I) N87.0 Active conf irmed 134527642 Problem Heart murmur R01.1 Active confirmed 8636511 6 Problem Mixed hyperlipidemia E78.2 Active confirmed 666717770 Problem Essential hypertension I10 Active confirmed 92675806 Problem Fatty liver K76.0 Active confirmed 03762526 7 Problem Intermittent palpitations R00.2 Active confirmed 276985855 Problem Acute right-sided low back pain with right-sided sciatica M54.41 Active confirmed 075822075 Continue physica l therapy, see me back after the last session, and we will discussed return to work. I look forward to the input from the physical therapist Problem Family history of diabetes mellitus (DM) Z83.3 Active confirmed 729490770 Problem Herpes simplex B00.9 Active confirmed 42253 005 Problem Obesity (BMI 30.0-34.9) E66.9 Active confirmed 929048621273626 Problem BMI 32.0-32.9,adult Z68.32 Active confirmed 987122629 Problem LFT elevation R79.89 Active confirmed 150900 05 ALLERGIES No Known Allergies ENCOUNTERS from 1960 to 2021-02-16 Encounter Location Date Provider Diagnosis [facility] [address] [facility] [phone] [place] [address] Jan, Taina Mckeon Routine gynecologica l examination Z01.419 ; Cervical cancer screening Z12.4 ; Breast cancer screening by mammogram Z12.31 and Hx of abnormal cervical Pap smear Z87.42 IMMUNIZATIONS Vaccine Route Administration Date Status COVID-19 [...] Education Language: Question Answer Notes Languages spoken: Amharic Evangelical: Question Answer Notes Evangelical 08 Religious Sexual Hx: Question Answer Notes Had sex [...] FOR REFERRAL No Information VITAL SIGNS Weight 190 lbs Jan, Height 63.5 in Jan, BMI 33.13 kg/m2 Jan, Blood pressure systolic 138 mm Hg Jan, Blood pressure diastolic 80 mm Hg Jan, MEDICATIONS Medication SIG (Take, Route, Frequency, Duration) Notes Start Da te End Date Status Losartan Potassium 25 MG 1 tablet Orally Once a day Active Acyclovir 5 % 1 application to affected ar ea on buttocks at symptom onset Externally Six times a day for 7 day(s) Jan, Active Calcium 600 + D 600-400 MG-UNIT 1 tablet Orally Daily Active Vitamin D3 1000 UNIT 2 capsules Orally Daily with meal Active Azelastine HCl 0.1 % 1 puff in each nostril Nasally Twice a day for 9 0 Active Aleve 220 MG 1 tablet as needed Orally every 12 hrs Not-Taking Physical Therapy evaluate and treat mechanical eval & tx M54.41, LBP with right sciatica 3 x/wk x for 30 Days Dec, Ac tive Naproxen 500 MG 1 tablet with food or milk a s needed Orally every 12 hrs as needed for 30 Days Dec, Not-Taking PROCEDURES No Information RESULTS Component Value Reference Range WWBC DIGITAL / HOLLIE BILATERAL MAMMO SCRE ENING (Ultrasound if indicated) Reviewed date:02/16/2021 11:47:43 Interpretation:Negative Performing Lab:[facility],[address] [place] ,[place] [id number] REASON FOR VISIT annual/mammo MEDICAL (GENERAL) HISTORY Type Description Date Medical History Essential hypertension Medical History heart murmur Medical History Vitamin D deficiency Medical History Mild dysplasia of cervix (CHELY I) Medical History recurrent HSV Medical History Environmental and seasonal allergies Medical History COVID vaccine - Moderna, , Surgical History LEEP Surgical History tubal ligation Surgical History colonoscopy (repeat 5-10yrs [facility]) Surgical History colposcopy - Kenia sesay 05/02 Surgical History colposcopy - Karla RADER 07/05, 05/05 Surgical History colposcopy with DR Lackey 10/05/16 Hospitalization History No Hospitalization history informati on Goals Section No Information Health Concerns No Information MEDICAL EQUIPMENT No Information MENTAL STATUS No Information FUNCTIONAL STATUS No Information ASSESSMENTS Encounter Date Diagnosis Assessment Notes Treatment Notes Treatm ent Clinical Notes Jan, Routine gynecological examination (ICD-10 - Z01. 419) Pt to report any episodes of pmb or pelvic pain. Advise regular physical activity including weight bearing exercise most days of the week. Reviewed calcium rich foods. Jan, Cervical cancer screening (ICD-10 - Z12.4) Reviewed ASCCP guidelines for pap screening and frequency, reviewed utility of HPV testing as well and when next pap will be due Jan, Breast cancer screening by mammogram (ICD-10 - Z 12.31) Reviewed screening intervals with mammography, recommend annual screening until age 75. Reviewed breast awareness, know what is normal for you so that you can detect any changes in the breasts, check breasts regularly, in a routine that you are comfortable with. Jan, Hx of abnormal cervical Pap smear (ICD-10 - Z87. 42) PLAN OF TREATMENT Treatment Notes Assessment Notes Clinical Notes Routine gynecological examination Pt to report any episodes of pmb or pelvic pain. Advise regular physical activity including weight bearing exercise most days of the week. Reviewed calcium rich foods. Cervical cancer screening Reviewed ASCCP guidelines for pap screening and frequency, reviewed utility of HPV testing as well and when next pap will be due Breast cancer screening by mammogram Rev iewed screening intervals with mammography, recommend annual screening until age 75. Reviewed breast awareness, know what is normal for you so that you can detect any changes in the breasts, check breasts regularly, in a routine that you are comfortable with. Treatment Notes Test Name Order Date PAP REQUEST FOR SERVICE 2021-02-16 Next Appt Details 1 Year Reason:annual/mammo Provider Name:Shireen James, 2021-01-23 7 09:00:00 AM, [address] [place] [address], , [place], [address], Provider Name:Alba Rivera, 2021-05-02 09:1 5:00 AM, [address] [place] [address], , [place], [address], Follow Up:1 Yearannual/mammo Insurance Providers Payer Name Payer Address Payer Phone Insured Name Patient Relati onship to Insured Coverage Start Date Coverage End Date JOSE MJACLYN PRETTY,[id number] [facility] [id number] [address] [facility] [id number] [facility] [phone] [place] self
--- OUTSIDE RECORDS SUMMARY | 2021-05-12 09:48 | CCD ---
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 Name Role Phone ELIZONDO, G EDWARD RPA Unavailable Unavailable ELIZONDO, G EDWARD RPA Unavailable Unavailable ELIZONDO, G EDWARD RPA Unavailable Unavailable ELIZONDO, G EDWARD RPA Unavailable Unavailable ELIZONDO, G EDWARD RPA Unavailable Unavailable ELIZONDO, G EDWARD RPA Unavailable Unavailable ELIZONDO, G EDWARD RPA Unavailable Unavailable ELIZONDO, G EDWARD RPA Unavailable Unavailable ELIZONDO, G EDWARD RPA Unavailable Unavailable ELIZONDO, G EDWARD RPA Unavailable Unavailable ELIZONDO, G EDWARD RPA Unavailable Unavailable ELIZONDO, G EDWARD RPA Unavailable Unavailable ELIZONDO, G EDWARD RPA Unavailable Unavailable ELIZONDO, G EDWARD RPA Unavailable Unavailable ELIZONDO, G EDWARD RPA Unavailable Unavailable ELIZONDO, G EDWARD RPA Unavailable Unavailable ELIZONDO, G EDWARD RPA Unavailable Unavailable ELIZONDO, G EDWARD RPA Unavailable Unavailable ELIZONDO, G EDWARD RPA Unavailable Unavailable ELIZONDO, G EDWARD RPA Unavailable Unavailable ELIZONDO, G EDWARD RPA Unavailable Unavailable ELIZONDO, G EDWARD RPA Unavailable Unavailable ELIZONDO, G EDWARD RPA Unavailable Unavailable ELIZONDO, G EDWARD RPA Unavailable Unavailable ELIZONDO, G EDWARD RPA Unavailable Unavailable ELIZONDO, G EDWARD RPA Unavailable Unavailable ELIZONDO, G EDWARD RPA Unavailable Unavailable ELIZONDO, G EDWARD RPA Unavailable Unavailable ELIZONDO, G EDWARD RPA Unavailable Unavailable ELIZONDO, G EDWARD RPA Unavailable Unavailable ELIZONDO, G EDWARD RPA Unavailable Unavailable ELIZONDO, G EDWARD RPA Unavailable Unavailable ELIZONDO, G EDWARD RPA Unavailable Unavailable ELIZONDO, G EDWARD RPA Unavailable Unavailable ELIZONDO, G EDWARD RPA Unavailable Unavailable ELIZONDO, G EDWARD RPA Unavailable Unavailable ELIZONDO, G EDWARD RPA Unavailable Unavailable Re-disclosure Warning The records that you are about to access may contain information from federally-assisted alcohol or drug abuse programs. If such information is present, then the following federally mandated warning applies: This information has been disclosed to you from records protected by federal confidentiality rules (42 CFR part 2). The federal rules prohibit you from making any further disclosure of this information unless further disclosure is expressly permitted by the written consent of the person to whom it pertains or as otherwise permitted by 42 CFR part 2. A general authorization for the release of medical or other information is NOT sufficient for this purpose. The Federal rules restrict any use of the information to criminally investigate or prosecute any alcohol or drug abuse patient.The records that you are about to access may contain highly sensitive health information, the redisclosure of which is protected by Article 27-F of the [facility] Public Health law. If you continue you may have access to information: Regarding HIV / AIDS; Provided by facilities licensed or operated by the [facility] Office of Mental Health; or Provided by the [facility] Office for People With Developmental Disabilities. If such information is present, then the following [facility] mandated warning applies: This information has been disclosed to you from confidential records which are protected by state law. State law prohibits you from making any further disclosure of this information without the specific written consent of the person to whom it pertains, or as otherwise permitted by law. Any unauthorized further disclosure in violation of state law may result in a fine or intermediate sentence or both. A general authorization for the release of medical or other information is NOT sufficient authorization for further disc losure. Family History Family Member Name Family Member Gender Family Member Status Date o f Status Description Data Source(s) Unknown Male Problem [facility] ([facility]) in his 60's Unknown Unknown Problem MED[facility] ([facility], [facility]) sister Encounters Encounter Providers Location Date Indications Data Source(s ) [place] [address] [facility] [address] 02/20/2021 12:00:00 AM EDT eCW1 ([facility]) [place] [address] [facility] [address] 02/17/2021 12:00:00 AM EDT eCW1 ([facility]) Outpatient [address] [facility] [place] [address] 02/16/2021 12:00:00 AM EDT eCW1 ([facility]) [place] [address] [facility] [address] 01/27/2021 12:00:00 AM EDT eCW1 ([facility]) [place] [address] [facility] [address] 01/23/2021 12:00:00 AM EDT eCW1 ([facility]) Office Visit, Est Pt., Level 4 FC [address] [place] [address] 12/29/2020 12:00:00 AM EDT eCW1 ([facility]) [place] [address] [facility] [address] 12/23/2020 12:00:00 AM EDT eCW1 ([facility]) Outpatient Attender: JUAN ELIZONDO RPA 12/22 09:22:18 AM EDT - 12/22/2020 10:29:11 AM EDT Doc[facility] ([facility] ) [place] [address] [facility] [address] 12/22/2020 12:00:00 AM EDT eCW1 ([facility]) Outpatient [address] [facility] [place] [address] 11/10/2020 12:00:00 AM EDT [facility]) [place] [address] [facility] [address] 10/20/2020 12:00:00 AM EDT [facility]CW[facility]) [place] [address] [facility] [address] 10/07/2020 12:00:00 AM EDT eCW1 ([facility]) [place] [address] [facility] [address] 09/02/2020 12:00:00 AM EST eCW1 ([facility]) [place] [address] [facility] [address] 09/01/2020 12:00:00 AM EST eCW1 ([facility]) [place] [address] [facility] [address] 04/28/2020 12:00:00 AM EST eCW1 ([facility]) [place] [address] [facility] [address] 04/08/2020 12:00:00 AM EDT eCW1 ([facility]) Immunizations Vaccine Date Status Description Data Source(s) COVID-19 dose #2 given elsewhere Unspecified 10/20/2020 11:1 2:00 AM EDT completed eCW1 ([facility]) COVID-19 dose #2 given elsewhere Unspecified 10/20/2020 11:1 2:00 AM EDT completed eCW1 ([facility]) COVID-19 dose #2 given elsewhere Unspecified 10/20/2020 11:1 2:00 AM EDT completed eCW1 ([facility]) COVID-19 dose #2 given elsewhere Unspecified 10/20/2020 11:1 2:00 AM EDT completed eCW1 ([facility]) COVID-19 dose #2 given elsewhere Unspecified 10/20/2020 11:1 2:00 AM EDT completed eCW1 ([facility]) COVID-19 dose #2 given elsewhere Unspecified 10/20/2020 11:1 2:00 AM EDT completed eCW1 ([facility]) COVID-19 dose #2 given elsewhere Unspecified 10/20/2020 11:1 2:00 AM EDT completed eCW1 ([facility]) COVID-19 dose #2 given elsewhere Unspecified 10/20/2020 11:1 2:00 AM EDT completed eCW1 ([facility]) COVID-19 dose #2 given elsewhere Unspecified 10/20/2020 11:1 2:00 AM EDT completed eCW1 ([facility]) COVID-19 dose #2 given elsewhere Unspecified 10/20/2020 11:1 2:00 AM EDT completed eCW1 ([facility]) COVID-19 VACCINE Moderna 09/22/2020 12:00:00 AM EDT completed [facility] Vaccine Series Complete: YESThis Data wa s Submitted to [facility] Via [employer]. COVID-19 dose #1 given elsewhere Unspecified 09/02/2020 09:1 8:00 AM EST completed eCW1 ([facility]) COVID-19 dose #1 given elsewhere Unspecified 09/02/2020 09:1 8:00 AM EST completed eCW1 ([facility]) COVID-19 dose #1 given elsewhere Unspecified 09/02/2020 09:1 8:00 AM EST completed eCW1 ([facility]) COVID-19 dose #1 given elsewhere Unspecified 09/02/2020 09:1 8:00 AM EST completed eCW1 ([facility]) COVID-19 dose #1 given elsewhere Unspecified 09/02/2020 09:1 8:00 AM EST completed eCW1 ([facility]) COVID-19 dose #1 given elsewhere Unspecified 09/02/2020 09:1 8:00 AM EST completed eCW1 ([facility]) COVID-19 dose #1 given elsewhere Unspecified 09/02/2020 09:1 8:00 AM EST completed eCW1 ([facility]) COVID-19 dose #1 given elsewhere Unspecified 09/02/2020 09:1 8:00 AM EST completed eCW1 ([facility]) COVID-19 dose #1 given elsewhere Unspecified 09/02/2020 09:1 8:00 AM EST completed eCW1 ([facility]) COVID-19 dose #1 given elsewhere Unspecified 09/02/2020 09:1 8:00 AM EST completed eCW1 ([facility]) COVID-19 dose #1 given elsewhere Unspecified 09/02/2020 09:1 8:00 AM EST completed eCW1 ([facility]) COVID-19 dose #1 given elsewhere Unspecified 09/02/2020 09:1 8:00 AM EST completed eCW1 ([facility]) COVID-19 dose #1 given elsewhere Unspecified 09/02/2020 09:1 8:00 AM EST completed eCW1 ([facility]) COVID-19 VACCINE Moderna 08/25/2020 12:00:00 AM EST completed [facility] Vaccine Series Complete: NOThis Data was Submitted to [facility] Via [employer]. Medications Medication Brand Name Start Date Product Form Dose Route Admi nistrative Instructions Pharmacy Instructions Status Indications Reaction Description Data Source(s) Polymyxin B 35444 UNT/ML / Trimethoprim 1 MG/ML Ophthalmic Solution 10,000 unit- 1 mg/mL POLYMYXIN B SULF/TRIMETHOPRIM 02/25/2021 12:00:00 AM EDT drops 1 0 INSTILL 1 DROP INTO RIGHT EYE FOUR TIMES A DAY START 3 DAYS PRIOR TO SURGERY INSTILL 1 DROP INTO RIGHT EYE FOUR TIMES A DAY START 3 DAYS PRIOR TO SURGERY SOLD: 02/25/2021 [facility] 0.5 % 02/25/2021 12:00:00 AM EDT drops 10 INSTILL 1 DROP INTO RIGHT EYE FOUR TIMES A DAY START 3 DAYS PRIOR TO SURGERY INSTILL 1 DROP INTO RIGHT EYE FOUR TIMES A DAY START 3 DAYS PRIOR TO SURGERY SOLD: 02/25/2021 [facility] 1 % 02/25/2021 12:00:00 AM EDT drops,suspension 10 INSTILL 1 DROP INTO RIGHT EYE FOUR TIMES A DAY START 3 DAYS PRIOR TO SURGERY INSTILL 1 DROP INTO RIGHT EYE FOUR TIMES A DAY START 3 DAYS PRIOR TO SURGERY SOLD: 02/25/2021 [facility] 500 mg 01/02/2021 12:00:00 AM EDT tablet 60 TAKE ONE TABLET BY MOUTH EVERY 12 HOURS WITH FOOD OR MILK NEEDED TAKE ONE TABLET BY MOUTH EVERY 12 HOURS WITH FOOD OR MILK NEEDED SOLD: 01/04/2021 [facility] 500 mg 01/02/2021 12:00:00 AM EDT tablet 60 TAKE ONE TABLET BY MOUTH EVERY 12 HOURS WITH FOOD OR MILK NEEDED TAKE ONE TABLET BY MOUTH EVERY 12 HOURS WITH FOOD OR MILK NEEDED SOLD: 02/03/2021 [facility] Naproxen 500 MG Oral Tablet Naproxen 500 MG 12/29/2020 12:00:00 AM EDT suspended Naproxen 500 MG eCW1 ([facility]) Physical Therapy evaluate and treat UNK 12/29/2020 12:00:00 AM EDT active Physical Therapy evaluate and tr eat eCW1 ([facility]) Physical Therapy evaluate and treat UNK 12/29/2020 12:00:00 AM EDT active Physical Therapy evaluate and tr eat eCW1 ([facility]) Physical Therapy evaluate and treat UNK 12/29/2020 12:00:00 AM EDT active Physical Therapy evaluate and tr eat eCW1 ([facility]) Naproxen 500 MG Oral Tablet Naproxen 500 MG 12/29/2020 12:00:00 AM EDT suspended Naproxen 500 MG eCW1 ([facility]) Naproxen 500 MG Oral Tablet Naproxen 500 MG 12/29/2020 12:00:00 AM EDT active Naproxen 500 MG eCW1 ([facility]) Naproxen 500 MG Oral Tablet Naproxen 500 MG 12/29/2020 12:00:00 AM EDT suspended Naproxen 500 MG eCW1 ([facility]) Naproxen 500 MG Oral Tablet Naproxen 500 MG 12/29/2020 12:00:00 AM EDT active Naproxen 500 MG eCW1 ([facility]) Naproxen 500 MG Oral Tablet Naproxen 500 MG 12/29/2020 12:00:00 AM EDT active Naproxen 500 MG eCW1 ([facility]) Physical Therapy evaluate and treat UNK 12/29/2020 12:00:00 AM EDT active Physical Therapy evaluate and tr eat eCW1 ([facility]) Naproxen 500 MG Oral Tablet Naproxen 500 MG 12/29/2020 12:00:00 AM EDT active Naproxen 500 MG eCW1 ([facility]) Physical Therapy evaluate and treat UNK 12/29/2020 12:00:00 AM EDT suspended Physical Therapy evaluate and tr eat eCW1 ([facility]) Physical Therapy evaluate and treat UNK 12/29/2020 12:00:00 AM EDT suspended Physical Therapy evaluate and tr eat eCW1 ([facility]) Physical Therapy evaluate and treat UNK 12/29/2020 12:00:00 AM EDT active Physical Therapy evaluate and tr eat eCW1 ([facility]) Insurance Providers Payer name Policy type / Coverage type Policy ID Covered green party ID Covered green party's relationship to nickerson Policy Nickerson Plan Information [facility] [id number] [facility] [id number] Needs Workers Comp Information WorkComp Health Claim [id number] Employee [id number] 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 WorkComp Health Claim [id number] [facility][1] [id number] ANSI-Commercial [id number] ANSI-Commercial [id number] ANSI-Commercial [id number] ANSI-Commercial [id number] ANSI-Commercial [id number] ANSI-Commercial [id number] ANSI-Commercial [id number] ANSI-Commercial [id number] ANSI-Commercial [id number] [facility] [id number] ANSI-Commercial [id number] [facility] Commercial [id number] Self [id number] ANSI-Commercial [id number] ANSI-Commercial [id number] ANSI-Commercial [id number] ANSI-Commercial [id number] [employer] [id number] SP [id number] [employer] [id number] SP [id number] [employer] Commercial [id number] Self [id number] [employer] PPO O [id number] S [id number] [employer]-O/P [id number] 18 [id number] ANSI-Commercial [id number] [employer] COMP [id number] SP [id number] [facility] [id number] SP [id number] SELF PAY ONLY [id number] SP [id number] ANSI-Commercial [id number] Problems, Conditions, and Diagnoses Code Display Name Description Problem Type Effective Dates Data Source(s) M54.41 [id number] Acute right-sided low back pain with right-sided sciatica Problem 12/29/2020 12:00:00 AM EDT eCW1 ([facility]) K76.0 [id number] Fatty liver Problem 11/10/2020 12:00:00 AM E DT eCW1 ([facility]) R79.89 Increased liver function LFT elevation Problem 12:00:00 AM EST eCW1 ([facility]) Z68.32 [id number] BMI 32.0-32.9,adult Problem 09/02/2020 12:00 :00 AM EST eCW1 ([facility]) E66.9 [id number] Obesity (BMI 30.0-34.9) Problem 0 09/02/2020 12:00:00 AM EST eCW1 ([facility]) B00.9 [id number] Herpes simplex Problem 04/28/2020 12:00:00 A M EST eCW1 ([facility]) Surgeries/Procedures No Information Results ID Date Data Source [facility] DIGITAL / HOLLIE BILATERAL MAMMO SCREENING (Ultraso und if indicated) 02/16/2021 12:00:00 AM EDT eCW1 ([facility]) Name Value Range Interpretation Code Description Data Aury rce(s) Supporting Document(s) [facility] DIGITAL / HOLLIE BILAT ERAL MAMMO SCREENING (Ultrasound if indicated) eCW1 ([facility]) ID Date Data Source [id number] 05/31/2020 12:00:00 AM EST [facility] Name Value Range Interpretation Code Description Data Aury rce(s) Supporting Document(s) 2019-nCoV RNA XXX QUIRINO+probe-Imp [facility] This lab was ordered by [facility] and reported by [facility]. ID Date Data Source [id number] 04/29/2020 03:07:00 PM EST MED[facility] ([facility]) Name Value Range Interpretation Code Description Data Aury rce(s) Supporting Document(s) Carbon dioxide, total [Moles/volume] in Serum or Plasma 30 [facility] ([facility]) Calcium [Mass/volume] in Serum or Plasma 10.0 [facility] ([facility]) Sodium 140 [facility] Chloride [Moles/volume] in Serum or Plasma 106 [facility] ([facility]) Potassium [Moles/volume] in Serum or Plasma 5.2 [facility] ([facility]) Glucose 95 83-110 [facility]) Blood Urea Nitrogen 14 7-18 [facility] ([facility]) Creatinine 0.79 0.6-1.0 [facility] ([facility]) Glomerular filtration rate/1.73 sq M.pre dicted [Volume Rate/Area] in Serum or Plasma by Creatinine-based formula (MDRD) Laboratory test result MEDENT ([facility]) ID Date Data Source Basic Metabolic Profile (BMP) 04/29/2020 11:59:09 AM EST eCW 1 ([facility]) Name Value Range Interpretation Code Description Data Aury rce(s) Supporting Document(s) 14 BLOOD UREA NITROGEN eCW1 ([facility]) 95 GLUCOSE, FASTING eCW1 ([facility]) 140 SODIUM LEVEL eCW1 ([facility]) 0.79 CREATININE FOR GFR eCW1 ([facility]) > 60.0 GLOMERULAR FILTRATION RATE eCW 1 ([facility]) 5.2 POTASSIUM SERUM eCW1 ([facility]) 106 CHLORIDE LEVEL eCW1 ([facility]) 30 CARBON DIOXIDE LEVEL eCW1 ([facility]) 10.0 CALCIUM LEVEL eCW1 ([facility]) ID Date Data Source [id number] 04/28/2020 08:16:00 AM EST MEDENT ([facility]) Name Value Range Interpretation Code Description Data Aury rce(s) Supporting Document(s) Calcium [Mass/volume] in Serum or Plasma 10.0 MED[facility] ([facility]) Chloride [Moles/volume] in Serum or Plasma 106 MED[facility] ([facility]) Carbon dioxide, total [Moles/volume] in Serum or Plasma 30 [facility] ([facility]) Sodium 140 [facility] Potassium [Moles/volume] in Serum or Plasma 5.2 MED[facility] ([facility]) Blood Urea Nitrogen 14 7-18 [facility] ([facility]) Glucose 95 70-100 MED[facility] ([facility]) Glomerular filtration rate/1.73 sq M.pre dicted [Volume Rate/Area] in Serum or Plasma by Creatinine-based formula (MDRD) Laboratory test result MEDENT ([facility]) Creatinine 0.79 0.55-1.30 [facility] ([facility]) Procedure Social History Code Duration Value Status Description Data Source(s ) Smoking 02/17/2021 12:00:00 AM EDT Former Smoker completed Former Smoker eCW1 ([facility]) Smoking 02/17/2021 12:00:00 AM EDT Former Smoker completed Former Smoker eCW1 ([facility]) Smoking 02/16/2021 12:00:00 AM EDT Former Smoker completed Former Smoker eCW1 ([facility]) Smoking 01/27/2021 12:00:00 AM EDT Former Smoker completed Former Smoker eCW1 ([facility]) Smoking 12/29/2020 12:00:00 AM EDT Former Smoker completed Former Smoker eCW1 ([facility]) Smoking 12/29/2020 12:00:00 AM EDT Former Smoker completed Former Smoker eCW1 ([facility]) Smoking 12/29/2020 12:00:00 AM EDT Former Smoker completed Former Smoker eCW1 ([facility]) Smoking 11/10/2020 12:00:00 AM EDT Former Smoker completed Former Smoker eCW1 ([facility]) Smoking 11/10/2020 12:00:00 AM EDT Former Smoker completed Former Smoker eCW1 ([facility]) Smoking 10/20/2020 12:00:00 AM EDT Former Smoker completed Former Smoker eCW1 ([facility]) Smoking 09/02/2020 12:00:00 AM EST Former Smoker completed Former Smoker eCW1 ([facility]) Smoking 09/02/2020 12:00:00 AM EST Former Smoker completed Former Smoker eCW1 ([facility]) Smoking 09/02/2020 12:00:00 AM EST Former Smoker completed Former Smoker eCW1 ([facility]) Smoking 04/28/2020 12:00:00 AM EST Former Smoker completed Former Smoker eCW1 ([facility]) Vital Signs ID Date Data Source UNK Name Value Range Interpretation Code Description Data Source(s) Body weight 189 [lb_av] 189 [lb_av] eCW1 ([facility]) Heart rate 80 /min 80 /min eCW1 ([facility]) Respiratory rate 16 /min 16 /min eCW1 ([facility]) Body temperature 97.6 [degF] 97.6 [degF] eCW1 ( [facility]) Systolic blood pressure 132 mm[Hg] 132 mm[Hg] e CW1 ([facility]) Diastolic blood pressure 74 mm[Hg] 74 mm[Hg] eCW1 ([facility]) Body height 63.5 [in_i] 63.5 [in_i] eCW1 ([facility]) Body mass index (BMI) [Ratio] 32.95 kg/m2 32.95 kg/m2 eCW1 ([facility]) Body weight 190 [lb_av] 190 [lb_av] eCW1 ([facility]) Body height 63.5 [in_i] 63.5 [in_i] eCW1 ([facility]) Body mass index (BMI) [Ratio] 33.13 kg/m2 33.13 kg/m2 eCW1 ([facility]) Systolic blood pressure 138 mm[Hg] 138 mm[Hg] e CW1 ([facility]) Diastolic blood pressure 80 mm[Hg] 80 mm[Hg] eCW1 ([facility]) Body weight 191 [lb_av] 191 [lb_av] eCW1 ([facility]) Body height 63.5 [in_i] 63.5 [in_i] eCW1 ([facility]) Body mass index (BMI) [Ratio] 33.30 kg/m2 33.30 kg/m2 eCW1 ([facility]) Heart rate 77 /min 77 /min eCW1 ([facility]) Respiratory rate 18 /min 18 /min eCW1 ([facility]) Systolic blood pressure 126 mm[Hg] 126 mm[Hg] e CW1 ([facility]) Diastolic blood pressure 80 mm[Hg] 80 mm[Hg] eCW1 ([facility]) Body weight 187.2 [lb_av] 187.2 [lb_av] [facility]CW[facility] Body height 63.5 [in_i] 63.5 [in_i] eCW1 ([facility]) Body mass index (BMI) [Ratio] 32.64 kg/m2 32.64 kg/m2 eCW1 ([facility]) Heart rate 70 /min 70 /min eCW1 ([facility]) Respiratory rate 18 /min 18 /min eCW1 ([facility]) Body temperature 97.8 [degF] 97.8 [degF] eCW1 ( [facility]) Systolic blood pressure 130 mm[Hg] 130 mm[Hg] e CW1 ([facility]) Diastolic blood pressure 80 mm[Hg] 80 mm[Hg] eCW1 ([facility]) Body weight 185 [lb_av] 185 [lb_av] eCW1 ([facility]) Systolic blood pressure 124 mm[Hg] 124 mm[Hg] e CW1 ([facility]) Body height 63.5 [in_i] 63.5 [in_i] eCW1 ([facility]) Diastolic blood pressure 70 mm[Hg] 70 mm[Hg] eCW1 ([facility]) Body mass index (BMI) [Ratio] 32.25 kg/m2 32.25 kg/m2 eCW1 ([facility]) Heart rate 77 /min 77 /min eCW1 ([facility]) Respiratory rate 20 /min 20 /min eCW1 ([facility]) Body temperature 96.5 [degF] 96.5 [degF] eCW1 ( [facility]) Body weight 188 [lb_av] 188 [lb_av] eCW1 ([facility]) Body height 63.5 [in_i] 63.5 [in_i] eCW1 ([facility]) Body mass index (BMI) [Ratio] 32.78 kg/m2 32.78 kg/m2 eCW1 ([facility]) Heart rate 77 /min 77 /min eCW1 ([facility]) Respiratory rate 20 /min 20 /min eCW1 ([facility]) Body temperature 97.8 [degF] 97.8 [degF] eCW1 ( [facility]) Systolic blood pressure 140 mm[Hg] 140 mm[Hg] e CW1 ([facility]) Diastolic blood pressure 80 mm[Hg] 80 mm[Hg] eCW1 ([facility]) Body weight 184 [lb_av] 184 [lb_av] eCW1 ([facility]) Body height 63.5 [in_i] 63.5 [in_i] eCW1 ([facility]) Body mass index (BMI) [Ratio] 32.08 kg/m2 32.08 kg/m2 eCW1 ([facility]) Heart rate 84 /min 84 /min eCW1 ([facility]) Respiratory rate 20 /min 20 /min eCW1 ([facility]) Body temperature 97.2 [degF] 97.2 [degF] eCW1 ( [facility]) Systolic blood pressure 126 mm[Hg] 126 mm[Hg] e CW1 ([facility]) Diastolic blood pressure 80 mm[Hg] 80 mm[Hg] eCW1 ([facility]) Body weight 183 [lb_av] 183 [lb_av] eCW1 ([facility]) Body height 63.5 [in_i] 63.5 [in_i] eCW1 ([facility]) Body mass index (BMI) [Ratio] 31.91 kg/m2 31.91 kg/m2 eCW1 ([facility]) Heart rate 80 /min 80 /min eCW1 ([facility]) Respiratory rate 20 /min 20 /min eCW1 ([facility]) Body temperature 97.5 [degF] 97.5 [degF] eCW1 ( [facility]) Systolic blood pressure 130 mm[Hg] 130 mm[Hg] e CW1 ([facility]) Diastolic blood pressure 84 mm[Hg] 84 mm[Hg] eCW1 ([facility]) Patient Treatment Plan of Care Planned Activity Planned Date Details Description Data Source (s) Naproxen 500 MG Oral Tablet 12/29/2020 12:00:00 AM EDT eCW1 ([facility]) Physical Therapy evaluate and treat 12/29/2020 12:00:00 AM EDT eCW1 ([facility]) Physical Therapy evaluate and treat 12/29/2020 12:00:00 AM EDT eCW1 ([facility]) Naproxen 500 MG Oral Tablet 12/29/2020 12:00:00 AM EDT eCW1 ([facility]) Physical Therapy evaluate and treat 12/29/2020 12:00:00 AM EDT eCW1 ([facility]) Naproxen 500 MG Oral Tablet 12/29/2020 12:00:00 AM EDT eCW1 ([facility])
[2021-05-12] MEDS ORDERED: MIDAZOLAM INJ 2MG/2ML VIAL (J2250 PER 1MG) As Ordered ONE (12:07)
[2021-05-12 12:52] VITALS: BP 167/83
== END 2021-05-12 12:56 | disposition home or self-care (01) ==
LOC: M SDC 09:42
PROVIDERS: ATTEND Ophthalmology
DX: H25.11 Age-related nuclear cataract, right eye (principal); I10 Essential (primary) hypertension; Z79.899 Other long term (current) drug therapy
CPT/HCPCS: 66984; J1097; J2250

== ENCOUNTER → 2021-06-05 | Outpatient (CLI) | payer OTHER ==
[~2021-06-05] MED LIST changes: -BSS IRR 500ML/OMIDRIA 4ML IRR BAG (OR ONLY) As Ordered ONE; -CEFUROXIME 1MG/0.1ML INTRACAMERAL INJ As Ordered ONE; -DUOVISC (0.50ML VISCOAT/0.85ML PROVISC) OPHTH KIT As Ordered ONE; -OFLOXACIN 0.3 % (OCUFLOX) OPTH SOL 5ML OD SCH; -PHENYLEPHRINE 1.5%/LIDOCAINE 1% INTRAOCULAR 0.8ML SYRINGE As Ordered ONE; -PHENYLEPHRINE 2.5% OPHTH SOL 2ML OD SCH; -PROPARACAINE 0.5% OPHTH SOL 15ML OD ONE; -TROPICAMIDE 1% OPHTH SOLN 2ML OD SCH
== END ==
LOC: M LABSMTC 09:22
PROVIDERS: ATTEND Anesthesiology
DX: Z01.812 Encounter for preprocedural laboratory examination (principal); Z20.822 Contact with and (suspected) exposure to COVID-19

== ENCOUNTER 2021-06-09 08:25 | Day surgery (SDC) | payer OTHER ==
[~2021-06-09] VITALS: Ht 162.6 cm; Wt 83.1 kg
[~2021-06-09 08:25] MED LIST changes: +BSS IRR 500ML/OMIDRIA 4ML IRR BAG (OR ONLY) As Ordered ONE; +CEFUROXIME 1MG/0.1ML INTRACAMERAL INJ As Ordered ONE; +LIDOCAINE 1% SDV 5ML VIAL As Ordered ONE; +LOSA25TA13 PO; -LOSA25TA14 PO; +OFLOXACIN 0.3 % (OCUFLOX) OPTH SOL 5ML OS SCH; +PHENYLEPHRINE 2.5% OPHTH SOL 2ML OS SCH; +PROPARACAINE 0.5% OPHTH SOL 15ML OS ONE; +TROPICAMIDE 1% OPHTH SOLN 2ML OS SCH
[2021-06-09] MEDS ORDERED: fentaNYL 100 MCG/2 ML INJECTION As Ordered ONE (08:47)
[2021-06-09] MEDS ORDERED: MIDAZOLAM INJ 2MG/2ML VIAL (J2250 PER 1MG) As Ordered ONE (08:47)
[2021-06-09 11:40] VITALS: BP 181/86
== END 2021-06-09 11:45 | disposition home or self-care (01) ==
LOC: M SDC 08:25
PROVIDERS: ATTEND Ophthalmology
DX: H25.12 Age-related nuclear cataract, left eye (principal); I10 Essential (primary) hypertension; Z79.899 Other long term (current) drug therapy
CPT/HCPCS: 66984; J1097; J2250; J3010

== ENCOUNTER → 2022-04-06 | Outpatient (CLI) | payer OTHER ==
[~2022-04-06] MED LIST changes: -BSS IRR 500ML/OMIDRIA 4ML IRR BAG (OR ONLY) As Ordered ONE; -CEFUROXIME 1MG/0.1ML INTRACAMERAL INJ As Ordered ONE; -D31000TA2 PO; -LIDOCAINE 1% SDV 5ML VIAL As Ordered ONE; -OFLOXACIN 0.3 % (OCUFLOX) OPTH SOL 5ML OS SCH; -PHENYLEPHRINE 2.5% OPHTH SOL 2ML OS SCH; -PROPARACAINE 0.5% OPHTH SOL 15ML OS ONE; -TROPICAMIDE 1% OPHTH SOLN 2ML OS SCH; +VITA100093 PO
== END ==
LOC: M WHC 07:11
PROVIDERS: ATTEND Nurse Practitioner Family
DX: Z12.31 Encounter for screening mammogram for malignant neoplasm of breast (principal)

== ENCOUNTER → 2022-04-06 | Outpatient (REF) | payer OTHER | LOC: M PLALAB 08:29 | PROVIDERS: ATTEND Nurse Practitioner Family | DX: Z12.4 Encounter for screening for malignant neoplasm of cervix (principal); R87.612 Low grade squamous intraepithelial lesion on cytologic smear of cervix (LGSIL) | CPT/HCPCS: 87624; G0123 ==

== ENCOUNTER → 2023-06-14 | Outpatient (CLI) | payer OTHER | LOC: M WHC 07:20 | PROVIDERS: ATTEND Nurse Practitioner Family | DX: Z12.31 Encounter for screening mammogram for malignant neoplasm of breast (principal) ==

== ENCOUNTER → 2023-06-14 | Outpatient (REF) | payer OTHER | LOC: M SFHCWAGY 15:47 | PROVIDERS: ATTEND Nurse Practitioner Family | DX: Z12.4 Encounter for screening for malignant neoplasm of cervix (principal) | CPT/HCPCS: 87624; G0123 ==

== ENCOUNTER → 2023-12-13 | Outpatient (CLI) | payer OTHER | LOC: M WUC 08:32 | PROVIDERS: ATTEND Physician Assistant Medical | DX: R06.02 Shortness of breath (principal) ==

== ENCOUNTER → 2024-08-13 | Outpatient (CLI) | payer MEDICARE, OTHER | LOC: M WHC 10:00 | PROVIDERS: ATTEND Physician Assistant Medical | DX: Z12.31 Encounter for screening mammogram for malignant neoplasm of breast (principal); R92.323 Mammographic fibroglandular density, bilateral breasts ==

== ENCOUNTER → 2025-01-22 | Outpatient (CLI) | payer MEDICARE, OTHER | LOC: M RAD 10:49 | PROVIDERS: ATTEND Physician Assistant Medical | DX: H53.8 Other visual disturbances (principal); I65.23 Occlusion and stenosis of bilateral carotid arteries ==